=== PATIENT | female | born 1935 | race Caucasian/White ===

== ENCOUNTER 2016-09-11 18:49 | Emergency (ER) | payer MEDICARE ==
[~2016-09-11] VITALS: Ht 170.2 cm; Wt 71.4 kg
[2016-09-11 18:54] VITALS: BP 152/63
== END 2016-09-11 20:15 | disposition home or self-care (01) ==
LOC: ED 20:00
DX: S70.12XA Contusion of left thigh, initial encounter (principal); Z87.891 Personal history of nicotine dependence; W19.XXXA Unspecified fall, initial encounter; Y93.89 Activity, other specified; Y92.89 Other specified places as the place of occurrence of the external cause; Y99.8 Other external cause status